=== PATIENT | female | born 1935 | race Caucasian/White ===

== ENCOUNTER 2021-11-24 18:23 | Inpatient (IN) | payer MEDICARE ==
[~2021-11-24] VITALS: Ht 165.1 cm; Wt 62.6 kg
[2021-11-24] MEDS ORDERED: FENO145T PO (19:34)
[2021-11-24] MEDS ORDERED: CLOP75TA15 PO (19:34)
[2021-11-24] MEDS ORDERED: LEVO25TA9 PO (19:34)
[2021-11-24] MEDS ORDERED: ATOR40TA PO (19:34)
[2021-11-24 20:52] LABS: HEMATOCRIT 37.1 % (31.2-41.9); MEAN CORPUSCULAR HEMOGLOBIN 30.9 uug (24.7-32.8); MEAN CORPUSCULAR VOLUME 93.3 fL (75.5-95.3); PLATELET COUNT (AUTO) 247 K/uL (179-408)
[2021-11-24 20:58] LABS: CARBON DIOXIDE 24 mmol/L (21-32); CHLORIDE 103 mmol/L (98-107); CREATININE 0.9 mg/dL (0.6-1.3); GLUCOSE 134 mg/dL (74-106); POTASSIUM 3.5 mmol/L (3.5-5.1); UREA NITROGEN, BLOOD 26 mg/dL (7-18)
[2021-11-24 21:12] LABS: ALANINE AMINOTRANSFERASE 22 U/L (14-59); ALKALINE PHOSPHATASE 74 U/L (50-136); ASPARTATE AMINOTRANSFERASE 25 U/L (15-37); BILIRUBIN,DIRECT 0.2 mg/dL (0.0-0.2); BILIRUBIN,TOTAL 0.3 mg/dL (0.2-1.0); TOTAL PROTEIN, SERUM 7.7 g/dL (6.4-8.2)
[2021-11-24] MEDS ORDERED: KETOROLAC TROMETHAMINE 15 MG INJ IM ONE (21:30)
[2021-11-24] MEDS ORDERED: MORPHINE SULFATE 2 MG/1 ML DISP.SYRIN IM ONE (21:30)
[2021-11-24] MEDS ORDERED: KETOROLAC TROMETHAMINE 15 MG INJ ONE (21:40)
[2021-11-24] MEDS ORDERED: MORPHINE SULFATE 2 MG/1 ML DISP.SYRIN ONE (21:41)
[2021-11-24] MEDS ORDERED: MAGNESIUM SULFATE/D5W 100 ML IV SCH (23:15)
[2021-11-25] MEDS ORDERED: PROPOFOL 200 MG/20 ML BOTTLE ONE (00:17)
[2021-11-25] MEDS ORDERED: MAGNESIUM SULFATE/D5W 100 ML ONE (01:02)
[2021-11-25] MEDS ORDERED: PROPOFOL 200 MG/20 ML BOTTLE IV ONE (01:15)
[2021-11-25] MEDS ORDERED: POTASSIUM CHLORIDE 20 MEQ TAB.PRT.SR PO ONE (01:15)
[2021-11-25] MEDS ORDERED: POTASSIUM CHLORIDE 20 MEQ TAB.PRT.SR ONE (02:06)
[2021-11-25] MEDS ORDERED: TDAP DIPH,PERTUSS,TET VAC/PF 0.5 ML DISP.SYRIN IM ONE ×2 (02:15→04:08)
[2021-11-25] MEDS ORDERED: MORPHINE SULFATE 2 MG/1 ML DISP.SYRIN IV PRN (04:15)
[2021-11-25] MEDS ORDERED: HYDROCODONE/APAP 5-325MG TABLET PO PRN (04:15)
[2021-11-25] MEDS ORDERED: ACETAMINOPHEN 325 MG TABLET PO PRN (04:15)
[2021-11-25] MEDS ORDERED: MAGNESIUM HYDROXIDE 30 ML LIQUID UDC PO PRN (04:15)
[2021-11-25] MEDS ORDERED: REMEDY ESSENTIAL ZINC PASTE 113 GM TP PRN (04:15)
[2021-11-25] MEDS ORDERED: ONDANSETRON 4 MG/2 ML VIAL IV PRN (04:15)
[2021-11-25] MEDS ORDERED: PANTOPRAZOLE SODIUM 40 MG TABLET.DR PO SCH (07:00)
[2021-11-25] MEDS ORDERED: PANTOPRAZOLE SODIUM 40 MG TABLET.DR PO ONE (08:38)
[2021-11-25 12:30] VITALS: BP 157/58
== END 2021-11-25 15:20 | disposition home or self-care (01) | DRG 563 ==
LOC: ER 18:25 → TRANSITION 11-25 06:41 → TELE3 11-25 10:44
PROVIDERS: ADMIT Student in an Organized Health Care Education/Training Program; ATTEND Student in an Organized Health Care Education/Training Program
PROC: 0RSKXZZ Reposition Left Shoulder Joint, External Approach (ICD-10-PCS; principal; 2021-11-25)
DX: S42.255A Nondisplaced fracture of greater tuberosity of left humerus, initial encounter for closed fracture (principal); S43.015A Anterior dislocation of left humerus, initial encounter; W17.89XA Other fall from one level to another, initial encounter; Y93.A1 Activity, exercise machines primarily for cardiorespiratory conditioning; Y92.009 Unspecified place in unspecified non-institutional (private) residence as the place of occurrence of the external cause; I45.10 Unspecified right bundle-branch block; I49.3 Ventricular premature depolarization; R94.31 Abnormal electrocardiogram [ECG] [EKG]; Z86.73 Personal history of transient ischemic attack (TIA), and cerebral infarction without residual deficits; Z20.822 Contact with and (suspected) exposure to COVID-19
CPT/HCPCS: 36415; 70030-TC; 70450; 71045; 72125; 73020; 73030; 85025; 90715; 93005; 97161; G0378; J1885; J2270; J3475; J3490

== ENCOUNTER 2023-02-19 17:10 | Emergency (ER) | payer MEDICARE ==
[~2023-02-19] VITALS: Ht 142.2 cm; Wt 51.7 kg
[~2023-02-19 17:10] MED LIST: ATOR40TA PO; CLOP75TA15 PO; FENO145T PO; LEVO25TA9 PO
--- NOTE | 2023-02-19 17:30 | NUR ---
Pt ambulatory with cane into ER and to room 3, son with patient. Patient c/o dizziness and generalized weakness since Wednesday. She went to her pmd () office today and was referred to ER. at bedside for MSE.
[2023-02-19 17:59] LABS: HEMATOCRIT 37.2 % (31.2-41.9); MEAN CORPUSCULAR HEMOGLOBIN 30.9 uug (24.7-32.8); MEAN CORPUSCULAR VOLUME 92.7 fL (75.5-95.3); PLATELET COUNT (AUTO) 257 K/uL (179-408)
--- NOTE | 2023-02-19 18:06 | NUR ---
Pt back from CT, NAD noted at this time.
[2023-02-19 18:16] LABS: CARBON DIOXIDE 24 mmol/L (21-32); CHLORIDE 107 mmol/L (98-107); CREATININE 1.1 mg/dL (0.6-1.3); GLUCOSE 91 mg/dL (74-106); POTASSIUM 4.2 mmol/L (3.5-5.1); UREA NITROGEN, BLOOD 38 mg/dL (7-18)
[2023-02-19 18:24] LABS: ALANINE AMINOTRANSFERASE 21 U/L (14-59); ALKALINE PHOSPHATASE 65 U/L (50-136); ASPARTATE AMINOTRANSFERASE 23 U/L (15-37); BILIRUBIN,DIRECT 0.1 mg/dL (0.0-0.2); BILIRUBIN,TOTAL 0.2 mg/dL (0.2-1.0); TOTAL PROTEIN, SERUM 7.8 g/dL (6.4-8.2)
[2023-02-19] MEDS ORDERED: IV NS 1000 ML 1,000 ML IV ONE (18:45)
--- NOTE | 2023-02-19 19:18 | NUR ---
Recieved report from Yaron PENA.
--- NOTE | 2023-02-19 19:20 | NUR ---
Dr. Bailey speaking with Dr. Harpal Aguirre.
--- NOTE | 2023-02-19 20:29 | NUR ---
Patient discharged to home in stable condition. Written and verbal after care instructions given. Patient verbalizes understanding of instructions. Stressed follow up or return to ER for worsening s/s. Patient walked out with steady gait accompainied by .
[2023-02-19 23:08] VITALS: BP 138/57
== END 2023-02-19 20:36 | disposition home or self-care (01) ==
LOC: ER 17:12
DX: R53.1 Weakness (principal); E03.9 Hypothyroidism, unspecified; R51.9 Headache, unspecified; R07.89 Other chest pain; Z86.73 Personal history of transient ischemic attack (TIA), and cerebral infarction without residual deficits; Z79.01 Long term (current) use of anticoagulants; Z79.899 Other long term (current) drug therapy
CPT/HCPCS: 36415; 70450; 71045; 84484; 85025; 85730; 93005; A4663